=== PATIENT | female | born 1980 | race Caucasian/White ===

== ENCOUNTER 2018-04-20 08:24 | Day surgery (SDC) | payer OTHER ==
[~2018-04-20 08:24] MED LIST: Bupivacaine 0.25% 10 ML SDV ONE; Lactated Ringers 1,000 ML IV SCH; Sodium Chloride 0.9% 10 ML Syringe FLUSH PRN; Sodium Chloride 0.9% 2.5 ML Syringe FLUSH PRN
[2018-04-20] MEDS ORDERED: Propofol 200 MG/20 ML SDV ONE ×3 (09:35→12:05)
[2018-04-20] MEDS ORDERED: Lidocaine 2% 5 ML SDV ONE (09:35)
--- NOTE | 2018-04-20 09:50 | PCM.PREANE ---
Preanesthetic Assessment - Anesthesia/Transfusion/Family Hx Anesthesia History: Prior Anesthesia Without Reaction Family History of Anesthesia Reaction: No Transfusion History: No Prior Transfusion(s) Intubation History: Unknown - Review of Systems General: No Symptoms Pulmonary: No Symptoms Cardiovascular: No Symptoms Gastrointestinal: No Symptoms Neurological: No Symptoms Other: Reports: None - Physical Assessment O2 Sat by Pulse Oximetry: 98 Respiratory Rate: 16 Vital Signs: Last Vital Signs Temp 37.1 C 04/20/18 09:27 Pulse 69 04/20/18 09:27 Resp 16 04/20/18 09:27 BP 108/55 L 04/20/18 09:27 Pulse Ox 98 04/20/18 09:27 Height: 1.68 m Weight: 80.739 kg ASA Class: 2 Mental Status: Alert & Oriented x3 Airway Class: Mallampati = 2 Dentition: Reports: Normal Dentition Thyro-Mental Finger Breadths: 3 Mouth Opening Finger Breadths: 2 ROM/Head Extension: Full Lungs: Clear to Auscultation, Normal Respiratory Effort Cardiovascular: Regular Rate, Regular Rhythm - Lab Values: Laboratory Last Values WBC 5.62 K/uL (4.0-11.0) 04/20/18 08:56 RBC 4.04 M/uL (4.30-5.90) L 04/20/18 08:56 Hgb 13.4 g/dL (12.0-16.0) 04/20/18 08:56 Hct 39.9 % (36.0-46.0) 04/20/18 08:56 MCV 98.8 fL (80.0-98.0) H 04/20/18 08:56 MCH 33.2 pg (27.0-32.0) H 04/20/18 08:56 MCHC 33.6 g/dL (31.0-37.0) 04/20/18 08:56 RDW Std Deviation 49.7 fl (28.0-62.0) 04/20/18 08:56 RDW Coeff of Christina 14 % (11.0-15.0) 04/20/18 08:56 Plt Count 212 K/uL (150-400) 04/20/18 08:56 MPV 9.40 fL (7.40-12.00) 04/20/18 08:56 Nucleated RBC % 0.0 /100WBC 04/20/18 08:56 Nucleated RBCs # 0 K/uL 04/20/18 08:56 Urine HCG, Qual NEGATIVE (NEGATIVE) 04/20/18 08:50 Antibody Screen NEGATIVE 04/20/18 08:56 - Allergies Allergies/Adverse Reactions: Allergies Allergy/AdvReac Type Severity Reaction Status Date / Time No Known Allergies Allergy Verified 04/14/18 16:28 - Blood Blood Available: No - Anesthesia Plan Pre-Op Medication Ordered: None - Acknowledgements Anesthesia Type Planned: General Anesthesia Pt an Appropriate Candidate for the Planned Anesthesia: Yes Alternatives and Risks of Anesthesia Discussed w Pt/Guardian: Yes Pt/Guardian Understands and Agrees with Anesthesia Plan: Yes PreAnesthesia Questionnaire Cardiovascular History: Reports: Arrhythmia Other Cardiovascular History: states has "palpitations" Genitourinary History: Reports: Other (See Below) Other Genitourinary History: has venereal warts 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: Reports: Endometriosis Musculoskeletal History: Reports: Fracture Other Musculoskeletal History: hx of fx toe Neurological History: Reports: Migraines - Past Surgical History Female Surgical History: Reports: Endometrial Ablation, Tubal Ligation, Other (See Below) (hysteroscopy) - SUBSTANCE USE Smoking Status *Q: Current Every Day Smoker (1/2 ppd) Tobacco Use Within Last Twelve Months: Cigarettes Recreational Drug Use History: No - HOME MEDS Home Medications: Home Meds Topiramate 50 mg PO DAILY 04/14/18 [History] - CURRENT (IN HOUSE) MEDS Current Meds: Current Medications Lactated Ringer's (Ringers, Lactated) 1,000 mls @ 125 mls/hr IV ASDIRECTED [facility] Last Admin: 04/20/18 09:00 Dose: 125 mls/hr Sodium Chloride (Saline Flush) 10 ml FLUSH ASDIRECTED PRN PRN Reason: Keep Vein Open Sodium Chloride (Saline Flush) 2.5 ml FLUSH ASDIRECTED PRN PRN Reason: Keep Vein Open Discontinued Medications Bupivacaine HCl (Sensorcaine-Mpf 0.25%) Confirm Administered Dose 10 ml .ROUTE .STK-MED ONE Stop: 04/20/18 07:37 Lidocaine (Xylocaine-Mpf 2%) Confirm Administered Dose 5 ml .ROUTE .STK-MED ONE Stop: 04/20/18 09:36 Propofol (Diprivan 20 Ml) Confirm Administered Dose 200 mg .ROUTE .STK-MED ONE Stop: 04/20/18 09:36
[2018-04-20] MEDS ORDERED: Midazolam 1 MG/ML 2 ML SDV ONE (10:12)
[2018-04-20] MEDS ORDERED: fentaNYL 250 MCG/5 ML SDV ONE (10:12)
[2018-04-20] MEDS ORDERED: fentaNYL 100 MCG/2 ML SDV ONE (10:12)
[2018-04-20] MEDS ORDERED: Sugammadex Sodium 200 MG/2 ML VIAL ONE (10:41)
[2018-04-20] MEDS ORDERED: ePHEDrine 50 MG/ML SDV ONE (11:44)
[2018-04-20] MEDS ORDERED: fentaNYL 100 MCG/2 ML SDV IVPUSH PRN (11:51)
--- NOTE | 2018-04-20 13:07 | PCM.OPNOTE ---
- General Post-Op/Procedure Note Date of Surgery/Procedure: 04/20/18 Operative Procedure(s): Diagnostic laparoscopy. Excision of perineal/genital lesions Findings: Normal uterus, tubes(area of ligation visualized), ovaries Multiple genital/perineal lesions Pre Op Diagnosis: Dyspareunia. Perineal and genital lesions Post-Op Diagnosis: Same Anesthesia Technique: General ET Tube Primary Surgeon: Cassia To Anesthesia Provider: Alexander Betancourt Excellence Leader: Beba Guerrier Pathology: Lesions from the perineal area Fluid Replacement, Intraop: 1,500 EBL in mLs: 5 Complications: None Condition: Good Free Text/Narrative:: Intake & Output 04/19/18 04/20/18 04/20/18 22:59 06:59 14:59 Output Total 50 Balance -50
[2018-04-20] MEDS ORDERED: Acetaminophen/oxyCODONE 325-5 MG Tab PO PRN (13:13)
[2018-04-20] MEDS ORDERED: Lactated Ringers 1,000 ML IV SCH (13:15)
--- NOTE | 2018-04-20 14:14 | PCM.POSTAN ---
POST ANESTHESIA ASSESSMENT - MENTAL STATUS Mental Status: Alert, Oriented - RESPIRATORY Respiratory Status: Respiratory Rate WNL, Airway Patent, O2 Saturation Stable - CARDIOVASCULAR CV Status: Pulse Rate WNL, Blood Pressure Stable - GASTROINTESTINAL GI Status: No Symptoms - POST OP HYDRATION Hydration Status: Adequate & Stable
--- NOTE | 2018-04-20 14:15 | PCM48HPAN ---
Post Anesthesia Note - EVALUATION WITHIN 48HRS OF ANESTHETIC Vital Signs in Normal Range: Yes Patient Participated in Evaluation: Yes Respiratory Function Stable: Yes Airway Patent: Yes Cardiovascular Function Stable: Yes Hydration Status Stable: Yes Pain Control Satisfactory: Yes Nausea and Vomiting Control Satisfactory: Yes Mental Status Recovered: Yes Resp Rate: 15
--- NOTE | 2018-04-21 01:20 | OR ---
SURGEON: Cassia To MD DATE OF PROCEDURE: 04/20/2018 [employer]LE [employer] OPERATOR: Tania Guerrier, MS IV. PREOPERATIVE DIAGNOSES: 1. Dyspareunia. 2. Perineal and genital lesions. POSTOPERATIVE DIAGNOSES: 1. Dyspareunia. 2. Perineal and genital lesions. PROCEDURES PERFORMED: 1. Diagnostic laparoscopy. 2. Excision of perineal lesions. ANESTHESIA: General endotracheal. COMPLICATIONS: None. ESTIMATED BLOOD LOSS: Minimal. FINDINGS: Normal-appearing uterus, tubes with bilateral partial salpingectomy noted,and ovaries. No adhesions or endometriotic deposits visualized. Multiple vulvar lesions and bilateral groin moles. INDICATION: The patient is a 38-year-old lady, who has had long-standing dyspareunia for over 12 years now. She was recently evaluated by another provider, and was told that she most likely has adenomyosis based on ultrasound findings. And It was recommended that she should have a hysterectomy, so she presented to me for a 2nd opinion. We discussed the possible differential diagnosis for dyspareunia. She doesn't want to try hormones but wants a definitive diagnosis, if feasible before she proceeds with hysterectomy if it was indicated. After reviewing her symptoms, I did recommend that we should proceed with a diagnostic laparoscopy to rule out other pelvic pathology including endometriosis but cautioned that adenomyosis is a diagnosis made definitely on pathology and can't be made on laparoscopy. The patient also had multiple vulvar lesions that she wanted to be removed. The lesions all looked benign with bilateral benign- looking moles. The patient accepted to proceed with a diagnostic laparoscopy. The risks, benefits, and alternatives to the surgery was discussed with her in detail, and an appropriate consent was obtained. DESCRIPTION OF PROCEDURE: The patient was taken to the operating room, where induction of general anesthesia was performed without difficulty. After appropriate level of anesthesia, she was placed in dorsal lithotomy position, prepped and draped in a sterile fashion for vaginal and laparoscopic surgery. The bladder was emptied. Examination under anesthesia revealed a bulky retroverted uterus, approximately 8-week size.No adnexal masses were palpable. A bivalve speculum was placed in the patient's vagina, and the anterior lip of the cervix was grasped with a single-tooth tenaculum. The uterus was sounded to 7 cm, and a Zumi uterine manipulator was placed into the uterine cavity. The speculum and instruments were removed from the patient's vagina, and vacuum filter operator's gloves were changed. Attention was then turned to the patient's abdomen, the umbilical fold was infiltrated with 0.5% Marcaine, and a 5 mm skin incision was made within the fold. Successful entry into the abdominal cavity was achieved with direct optic entrance using a 5 mm trocar and scope. Pneumoperitoneum was established using CO2 gas up to a pressure of 15 mmHg. Abdominal and pelvic survey of the abdomen was performed. A 2nd port was then placed using a 5 mm trocar in the left lower quadrant under direct visualization, 8 cm from the midline after the area had been infiltrated with 0.25 Marcaine. A systemic evaluation of the pelvis was then performed from the right side to the left side, looking for any abnormalities including possible endometriotic deposits. With no pathology visualized, the laparoscopy was completed. The gas was stopped and released, and the left port was removed under direct visualization. The umbilical port was removed with the laparoscope. The skin incisions were closed with 4-0 Monocryl using subcuticular stitches. Attention was turned to the patient's perineal area, where the Zumi manipulator was removed and the area at which the single-tooth tenaculum was applied was noted to be hemostatic. I then proceeded to perform excision of multiple vulvar lesions using #11 blade and cauterizing the base with electrocautery. Hemostasis was achieved. There were 2 lesions that were removed sequentially on the patient's left labia majora. This area was reapproximated with 2 interrupted stitches of 4-0 Vicryl. All the lesions that were excised including the ones in the groins were all sent off to pathology for analysis. The patient tolerated the procedure well. Sponge, lap, needle, and instrument counts were correct at the end of the procedure. She was taken to the recovery room in a stable condition. ADUMVIV / MODL /[id number] MORELIA
== END 2018-04-20 14:30 | disposition home or self-care (01) ==
LOC: MW.SDS 08:24
PROVIDERS: ATTEND Obstetrics & Gynecology
DX: N94.12 Deep dyspareunia (principal); A63.0 Anogenital (venereal) warts; F17.210 Nicotine dependence, cigarettes, uncomplicated; F41.9 Anxiety disorder, unspecified
CPT/HCPCS: 11420; 36415; 49320; 81025; 85027; 86850; 86900; 86901; 88305; J2250; J2704; J3010; J3490; J7120; 00840

== ENCOUNTER 2019-11-03 16:25 | Emergency (ER) | payer OTHER | END 2019-11-03 18:04 | disposition left against medical advice (07) | LOC: MW.ED 16:25 | DX: Z53.21 Procedure and treatment not carried out due to patient leaving prior to being seen by health care provider (principal) ==

== ENCOUNTER 2020-06-24 21:53 | Emergency (ER) | payer OTHER ==
[2020-06-24] MEDS ORDERED: Lidocaine 5% 700 MG Patch TOP ONE (22:13)
[2020-06-24] MEDS ORDERED: traMADol 50 MG Tab PO ONE (22:13)
[2020-06-24] MEDS ORDERED: predniSONE 20 MG Tab PO ONE (22:13)
--- NOTE | 2020-06-24 22:22 | EDM.PDOC ---
ED HPI GENERAL MEDICAL PROBLEM - General Chief Complaint: Back Pain or Injury Stated Complaint: back injury Time Seen by Provider: 06/24/20 22:07 - History of Present Illness INITIAL COMMENTS - FREE TEXT/NARRATIVE: HISTORY AND PHYSICAL: History of present illness: This is a 40-year-old female who presents the ER today secondary to severe right-sided low back pain that occurred a couple days ago while lifting a pallet off the ground she felt a ripping sensation to her lower back. Patient reports no loss of bowel or bladder function, no perineal paresthesias, no weakness to her upper or lower extremities, no recent fevers, shakes, chills, nausea, vomiting, diarrhea, dysuria, frequency, urgency, hematuria. Patient reports no recent weight loss. Patient is tolerating p.o. solids and liquids well. Patient reports that she has been taking Naprosyn and Flexeril from a prior prescription without any relief in pain. Patient reports that she had a similar episode like this approximately 15 years ago and only thing that benefited her was a course of steroids. Review of systems: As per history of present illness and below otherwise all systems reviewed and negative. Past medical history: As per history of present illness and as reviewed below otherwise noncontributory. Surgical history: As per history of present illness and as reviewed below otherwise noncontributory. Social history: No reported history of drug or alcohol abuse. Family history: As per history of present illness and as reviewed below otherwise noncontributory. Physical exam: Constitutional: Patient is oriented to person, place, and time. Appears well- developed and well-nourished. No distress. HEENT: Moist mucous membranes Head: Normocephalic and atraumatic Eyes: Right eye exhibits no discharge. Left eye exhibits no discharge. No scleral icterus Neck: Normal range of motion. No tracheal deviation present. Cardiovascular: Normal rate and regular rhythm. Pulmonary: Effort normal, no respiratory distress. Abdominal: No distention Musculoskeletal: Normal range of motion Neurologic: Alert and oriented to person, place and time. Skin: [place], warm and dry. Psychiatric: Normal mood and affect. Behavior is normal. Judgment and thought content normal. Nursing note and vital signs have been reviewed Patient has reproducible tenderness to palpation to her right lower back. Patient has no evidence of retro-peritonitis. Patient has a normal neurological exam. Therapeutics: Medrol Dosepak Lidoderm patch Ultram 50 mg p.o. x1 dose in ED Assessment and plan: This is a 40-year-old female who presents ER today with likely mechanical lower back pain secondary to lifting a pallet. Patient be treated with a Medrol dose pack per her request as well as a Lidoderm patch and Ultram 50 mg p.o. x1 in ED. Patient has been also given instructions to rest, apply heat and no heavy lifting. Patient has no evidence of cord injury or other spinal cord pathology given her current symptoms and presentation. Reassessment at the time of disposition demonstrates that the patient is in no acute distress. The patient has remained stable throughout the entire ED visit and is without objective evidence for acute process requiring urgent intervention or hospitalization. The patient is stable for discharge, counseling is provided as documented above, discussed symptomatic treatment and specific conditions for return. I have spoken with the patient/caregiver and discussed todays findings, in addition to providing specific details for the plan of care. Questions are answered and there is agreement with the plan. Definitive disposition and diagnosis as appropriate pending reevaluation and review of above. Right Lower Back Pain Score (Numeric/FACES): 7 - Related Data Allergies Allergy/AdvReac Type Severity Reaction Status Date / Time No Known Allergies Allergy Verified 06/24/20 22:06 Home Meds: Home Meds Topiramate 50 mg PO BID 04/14/18 [History] Ibuprofen 800 mg PO Q8H PRN 7 Days #21 tablet 08/24/18 [Rx] Cholecalciferol (Vitamin D3) [Vitamin D3] 2 tab PO DAILY 11/03/19 [History] Multivitamin [Multivitamins] 1 tab PO DAILY 11/03/19 [History] Lidocaine 5% [Lidoderm 5%] 1 patch TOP DAILY PRN #7 patch 06/24/20 [Rx] methylPREDNISolone [Medrol Dose Pack] 84 mg PO DAILY #1 dospk 06/24/20 [Rx] Past Medical History Cardiovascular History: Reports: Arrhythmia Other Cardiovascular History: states has "palpitations" Respiratory History: Reports: Other (See Below) Other Respiratory History: smokes 1 PPD for 22 years Genitourinary History: Reports: Other (See Below) Other Genitourinary History: has venereal warts 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 Musculoskeletal History: Reports: Back Pain, Chronic, Fracture Other Musculoskeletal History: hx of fx toe Neurological History: Reports: Migraines Other Neuro History: takes Topamax daily for migraines - Infectious Disease History Infectious Disease History: Reports: Chicken Pox - Past Surgical History Female Surgical History: Reports: Endometrial Ablation, Hysterectomy, Tubal Ligation, Other (See Below) Other Female Surgeries/Procedures: Laparoscopy 05/01, Hysteroscopy, Excision of genital lesions Social & Family History - Family History Family Medical History: Noncontributory - Recreational Drug Use Recreational Drug Use: No ED ROS GENERAL - Review of Systems Review Of Systems: See Below ED EXAM, GENERAL - Physical Exam Exam: See Below Course - Vital Signs Last Recorded V/S: Last Vital Signs Temp 98.5 F 06/24/20 21:58 Pulse 101 H 06/24/20 21:58 Resp 18 06/24/20 21:58 BP 110/63 06/24/20 21:58 Pulse Ox 97 06/24/20 21:58 - Orders/Labs/Meds Meds: Medications Discontinued Medications Generic Name Dose Route Start Last Admin Trade Name Freq PRN Reason Stop Dose Admin Lidocaine 700 mg 06/24/20 22:13 Lidoderm 5% TOP 06/24/20 22:14 ONETIME ONE Prednisone 40 mg 06/24/20 22:13 Prednisone PO 06/24/20 22:14 ONETIME ONE Tramadol HCl 50 mg 06/24/20 22:13 Ultram PO 06/24/20 22:14 ONETIME ONE Departure - Departure Time of Disposition: 22:21 Disposition: Home, Self-Care 01 Clinical Impression: Acute low back pain - Discharge Information Prescriptions: Lidocaine 5% [Lidoderm 5%] 1 patch TOP DAILY PRN #7 patch PRN Reason: Pain methylPREDNISolone [Medrol Dose Pack] 84 mg PO DAILY #1 dospk Instructions: Acute Back Pain, Adult Referrals: Demarco Henry MD [Primary Care Provider] - Additional Instructions: You have been given prescription for Lidoderm patches as well as a Medrol Dosepak. Please take the Medrol Dosepak as directed. The following information is given to patients seen in the emergency department who are being discharged to home. This information is to outline your options for follow-up care. We provide all patients seen in our emergency department with a follow-up referral. The need for follow-up, as well as the timing and circumstances, are variable depending upon the specifics of your emergency department visit. If you don't have a primary care physician on staff, we will provide you with a referral. We always advise you to contact your personal physician following an emergency department visit to inform them of the circumstance of the visit and for follow-up with them and/or the need for any referrals to a consulting specialist. The emergency department will also refer you to a specialist when appropriate. This referral assures that you have the opportunity for follow-up care with a specialist. All of these measure are taken in an effort to provide you with optimal care, which includes your follow-up. Under all circumstances we always encourage you to contact your private physician who remains a resource for coordinating your care. When calling for follow-up care, please make the office aware that this follow-up is from your recent emergency room visit. If for any reason you are refused follow-up, please contact the [facility] Emergency Department at and asked to speak to the emergency department charge nurse. Sepsis Event Note (ED) - Evaluation Sepsis Screening Result: No Definite Risk - Focused Exam Vital Signs: Vital Signs Temp Pulse Resp BP Pulse Ox 06/24/20 21:58 98.5 F 101 H 18 110/63 97
== END 2020-06-24 22:30 | disposition home or self-care (01) ==
LOC: MW.ED 21:53
DX: M54.5 Low back pain (principal); F17.210 Nicotine dependence, cigarettes, uncomplicated; Z79.899 Other long term (current) drug therapy
CPT/HCPCS: 99283; A9270

== ENCOUNTER 2021-07-16 07:56 | Day surgery (SDC) | payer BC ==
[~2021-07-16 07:56] MED LIST changes: -Bupivacaine 0.25% 10 ML SDV ONE; +Sodium Chloride 0.9% 10 ML SDV IV PRN
--- NOTE | 2021-07-16 08:56 | PCM.PREANE ---
Preanesthetic Assessment - Procedure Proposed Procedure: EGD - Anesthesia/Transfusion/Family Hx Anesthesia History: Prior Anesthesia Without Reaction Family History of Anesthesia Reaction: No Transfusion History: No Prior Transfusion(s) Intubation History: Unknown - Review of Systems General: No Symptoms Pulmonary: No Symptoms (Smokes <1PPD) Cardiovascular: No Symptoms ("Palpitations") Gastrointestinal: No Symptoms Neurological: No Symptoms Other: Reports: None - Physical Assessment NPO Status Date: 07/15/21 NPO Status Time: 20:00 Vital Signs: Last Vital Signs Temp 97.3 F 07/16/21 08:11 Pulse 68 07/16/21 08:11 Resp 14 07/16/21 08:11 BP 105/65 07/16/21 08:11 Pulse Ox 98 07/16/21 08:11 Height: 5 ft 8 in Weight: 87.09 kg ASA Class: 2 Mental Status: Alert & Oriented x3 Airway Class: Mallampati = 3 Dentition: Reports: Normal Dentition Thyro-Mental Finger Breadths: 3 Mouth Opening Finger Breadths: 3 ROM/Head Extension: Full Lungs: Clear to Auscultation, Normal Respiratory Effort Cardiovascular: Regular Rate, Regular Rhythm - Allergies Allergies/Adverse Reactions: Allergies Allergy/AdvReac Type Severity Reaction Status Date / Time No Known Allergies Allergy Verified 07/10/21 10:09 - Acknowledgements Anesthesia Type Planned: General Anesthesia Pt an Appropriate Candidate for the Planned Anesthesia: Yes Alternatives and Risks of Anesthesia Discussed w Pt/Guardian: Yes Pt/Guardian Understands and Agrees with Anesthesia Plan: Yes PreAnesthesia Questionnaire HEENT History: Reports: None Cardiovascular History: Reports: Arrhythmia Other Cardiovascular History: states has "palpitations" Respiratory History: Reports: Other (See Below) Other Respiratory History: smokes 1 PPD for 22 years Gastrointestinal History: Reports: Chronic Constipation, Other (See Below) Other Gastrointestinal History: abdominal pain Genitourinary History: Reports: Other (See Below) Other Genitourinary History: has venereal warts 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 Musculoskeletal History: Reports: Back Pain, Chronic, Fracture Other Musculoskeletal History: hx of fx toe Neurological History: Reports: Migraines Other Neuro History: takes Topamax daily for migraines Psychiatric History: Reports: None Endocrine/Metabolic History: Reports: None Hematologic History: Reports: None Immunologic History: Reports: None Oncologic (Cancer) History: Reports: None Dermatologic History: Reports: None - Infectious Disease History Infectious Disease History: Reports: Chicken Pox - Past Surgical History Head Surgeries/Procedures: Reports: None HEENT Surgical History: Reports: None Cardiovascular Surgical History: Reports: None Respiratory Surgical History: Reports: None GI Surgical History: Reports: Colonoscopy Female Surgical History: Reports: Endometrial Ablation, Hysterectomy, Tubal Ligation, Other (See Below) Other Female Surgeries/Procedures: Laparoscopy 05/01, Hysteroscopy, Excision of genital lesions Endocrine Surgical History: Reports: None Neurological Surgical History: Reports: None Musculoskeletal Surgical History: Reports: None Oncologic Surgical History: Reports: None - SUBSTANCE USE Tobacco Use Status *Q: Current Every Day Tobacco User Tobacco Use Within Last Twelve Months: Cigarettes Recreational Drug Use History: No - HOME MEDS Home Medications: Home Meds Topiramate 50 mg PO BID 04/14/18 [History] Multivitamin [Multivitamins] 1 tab PO DAILY 11/03/19 [History] Dicyclomine [Bentyl] 10 - 20 mg PO Q6H PRN 07/10/21 [History] Gabapentin [Neurontin] 300 mg PO BEDTIME 07/10/21 [History] - CURRENT (IN HOUSE) MEDS Current Meds: Current Medications Lactated Ringer's (Ringers, Lactated) 1,000 mls @ 125 mls/hr IV ASDIRECTED [facility] Last Admin: 07/16/21 08:11 Dose: 125 mls/hr Documented by: Sodium Chloride (Sodium Chloride 0.9% 10 Ml Syringe) 10 ml FLUSH ASDIRECTED PRN PRN Reason: Keep Vein Open Sodium Chloride (Sodium Chloride 0.9% 2.5 Ml Syringe) 2.5 ml FLUSH ASDIRECTED PRN PRN Reason: Keep Vein Open Sodium Chloride (Sodium Chloride 0.9% 10 Ml Sdv) 10 ml IV ASDIRECTED PRN PRN Reason: IV Use
[2021-07-16] MEDS ORDERED: fentaNYL 100 MCG/2 ML SDV ONE (09:10)
[2021-07-16] MEDS ORDERED: Lidocaine 2% 100 MG/5 ML Syringe ONE (09:10)
[2021-07-16] MEDS ORDERED: Propofol 200 MG/20 ML SDV ONE (09:10)
--- NOTE | 2021-07-16 10:12 | PCM.POSTAN ---
POST ANESTHESIA ASSESSMENT - MENTAL STATUS Mental Status: Alert, Oriented - VITAL SIGNS Vital Signs: Last Vital Signs Temp 97.2 F 07/16/21 10:05 Pulse 68 07/16/21 10:10 Resp 13 07/16/21 10:10 BP 100/59 L 07/16/21 10:10 Pulse Ox 97 07/16/21 10:10 - RESPIRATORY Respiratory Status: Respiratory Rate WNL, Airway Patent, O2 Saturation Stable - CARDIOVASCULAR CV Status: Pulse Rate WNL, Blood Pressure Stable - GASTROINTESTINAL GI Status: No Symptoms - PAIN Pain Score: 0 - POST OP HYDRATION Hydration Status: Adequate & Stable
--- NOTE | 2021-07-16 10:18 | PCM48HPAN ---
Post Anesthesia Note - EVALUATION WITHIN 48HRS OF ANESTHETIC Vital Signs in Normal Range: Yes Patient Participated in Evaluation: Yes Respiratory Function Stable: Yes Airway Patent: Yes Cardiovascular Function Stable: Yes Hydration Status Stable: Yes Pain Control Satisfactory: Yes Nausea and Vomiting Control Satisfactory: Yes Mental Status Recovered: Yes Vital Signs: Last Vital Signs Temp 97.2 F 07/16/21 10:05 Pulse 68 07/16/21 10:10 Resp 13 07/16/21 10:10 BP 100/59 L 07/16/21 10:10 Pulse Ox 97 07/16/21 10:10 - COMMENTS/OBSERVATIONS Free Text/Narrative:: Pt doing well post-op. VSS. No apparent anesthetic complications. Dr. Homer Betancourt
--- NOTE | 2021-07-16 14:35 | PCM.OPNOTE ---
- General Post-Op/Procedure Note Date of Surgery/Procedure: 07/16/21 Operative Procedure(s): EGD with biopsy Findings: Normal appearing EGD Pre Op Diagnosis: Postprandial abdominal pain Post-Op Diagnosis: same Anesthesia Technique: DORIS Primary Surgeon: Cheri Cordero Condition: Good Free Text/Narrative:: Intake & Output 07/15/21 07/16/21 07/16/21 22:59 06:59 14:59 Intake Total 600 Balance 600
--- NOTE | 2021-07-17 17:50 | OR ---
SURGEON: CHERI CORDERO MD DATE OF PROCEDURE: 07/16/2021 PREOPERATIVE DIAGNOSIS: Postprandial abdominal pain. POSTOPERATIVE DIAGNOSIS: Postprandial abdominal pain. PROCEDURE PERFORMED: Diagnostic esophagogastroduodenoscopy. PRIMARY SURGEON: Cheri Cordero MD ANESTHESIA: MAC. INSTRUMENT USED: Olympus endoscope. EXTENT OF EXAM: To the second portion of duodenum. PREPARATION: Good. LIMITATIONS: None. INDICATIONS FOR EXAMINATION: Patient is a 41-year-old female who presented to my clinic with postprandial abdominal pain. A right upper quadrant ultrasound was normal. The decision was made to proceed to the operating room to perform a diagnostic EGD. I explained the procedure, expected perioperative course, and the risks. She verbalized understanding and wishes to proceed. PROCEDURE IN DETAIL: The patient was brought in to the endoscopy suite and placed in a left lateral decubitus position. A time-out was completed verifying the patient's name, age, date of , allergies, and procedure to be performed. A bite block was placed in the patient's mouth. Monitored anesthesia care was induced and continuous oxygen was provided via face mask throughout the procedure. After adequate sedation was achieved, a well-lubricated endoscope was placed in the patient's mouth and advanced under direct visualization to the second portion of duodenum. This appeared normal and a photograph was taken. The scope was then fully withdrawn while examining the color, texture, anatomy, and integrity of the mucosa of the upper GI tract. The duodenum appeared normal. A biopsy was taken within the duodenal bulb using a cold biopsy forceps. The scope was then brought into the stomach and a photograph was taken of the GE junction with the scope retroflexed as well as the pylorus. Both appeared anatomically normal. Biopsies were taken of the gastric antrum, body, and fundus and sent to Pathology for histologic review and H pylori testing. The scope was brought into the distal esophagus. The Z-line appeared normal. A biopsy was taken 1 cm above the Z-line and sent to Pathology for histologic review. The remainder of the esophagus was free of pathology. The patient tolerated the procedure well and was transferred to the PACU in stable condition. ENDOSCOPIC DIAGNOSIS: Postprandial abdominal pain. RECOMMENDATIONS: We will see what the biopsy results show and visit with the patient in clinic regarding the next steps in diagnosis and treatment. AMBROSIO / LIANE /[id number]
== END 2021-07-16 10:36 | disposition home or self-care (01) ==
LOC: MW.SDS 07:56
PROVIDERS: ATTEND Surgery
DX: K29.50 Unspecified chronic gastritis without bleeding (principal); I78.1 Nevus, non-neoplastic; G47.00 Insomnia, unspecified; G43.909 Migraine, unspecified, not intractable, without status migrainosus; K59.09 Other constipation; F17.200 Nicotine dependence, unspecified, uncomplicated; E53.8 Deficiency of other specified B group vitamins; Z79.899 Other long term (current) drug therapy; Z98.890 Other specified postprocedural states
CPT/HCPCS: 43239; J2704; J3010; J7120; 00731

== ENCOUNTER 2021-08-20 08:41 | Day surgery (SDC) | payer BC ==
[~2021-08-20 08:41] MED LIST changes: +Glycopyrrolate 0.2 MG/ML SDV ONE; +Ketorolac 30 MG/ML SDV ONE; +Lidocaine 2% 5 ML SDV ONE; +Midazolam 1 MG/ML 2 ML SDV ONE; +Ondansetron 4 MG/2 ML SDV ONE; +Rocuronium Bromide 50 MG/5 ML Syringe ONE; +Scopolamine 1.5 MG Transdermal Patch ONE; -Sodium Chloride 0.9% 10 ML SDV IV PRN; +Sodium Chloride 0.9% 20 ML SDV IV PRN; +Sugammadex Sodium 200 MG/2 ML VIAL ONE; +Water For Injection, Sterile 20 ML ONE; +ceFAZolin 1 GM Vial ONE; +ceFAZolin 2 GM in Premix Bag 1 BAG IV ONE; +fentaNYL 250 MCG/5 ML SDV ONE
[2021-08-20] MEDS ORDERED: Bupivacaine 0.5% 30 ML SDV ONE ×2 (09:31→12:24)
[2021-08-20] MEDS ORDERED: Albuterol 0.083% 2.5 MG/3 ML Neb Soln NEB PRN (09:34)
[2021-08-20] MEDS ORDERED: fentaNYL 100 MCG/2 ML SDV IVPUSH PRN (09:34)
[2021-08-20] MEDS ORDERED: Ondansetron 4 MG/2 ML SDV IVPUSH PRN (09:34)
[2021-08-20] MEDS ORDERED: HYDROmorphone 1 MG/ML Syringe IVPUSH PRN (09:34)
[2021-08-20] MEDS ORDERED: Naloxone 0.4 MG/ML SDV IVPUSH PRN (09:34)
[2021-08-20] MEDS ORDERED: Metoclopramide 10 MG/2 ML SDV IVPUSH PRN (09:34)
[2021-08-20] MEDS ORDERED: Dexmedetomidine 200 MCG/2 ML SDV ONE (09:44)
[2021-08-20] MEDS ORDERED: Propofol 200 MG/20 ML SDV ONE (09:44)
[2021-08-20] MEDS ORDERED: Rocuronium Bromide 50 MG/5 ML Syringe ONE (09:44)
[2021-08-20] MEDS ORDERED: Lidocaine 2% 100 MG/5 ML Syringe ONE (09:44)
[2021-08-20] MEDS ORDERED: Midazolam 1 MG/ML 2 ML SDV ONE (09:44)
[2021-08-20] MEDS ORDERED: Dexamethasone 4 MG/ML 5 ML MDV ONE (09:44)
[2021-08-20] MEDS ORDERED: fentaNYL 100 MCG/2 ML SDV ONE (09:44)
[2021-08-20] MEDS ORDERED: Water For Injection, Sterile 20 ML ONE (09:45)
--- NOTE | 2021-08-20 09:45 | PCM.PREANE ---
Preanesthetic Assessment - Procedure Proposed Procedure: Lap Stacie - Anesthesia/Transfusion/Family Hx Anesthesia History: Prior Anesthesia Without Reaction Family History of Anesthesia Reaction: No Transfusion History: No Prior Transfusion(s) Intubation History: Unknown - Review of Systems Pulmonary: No Symptoms (smokes 1/2 PPD) Cardiovascular: No Symptoms (h/o palpitations) Gastrointestinal: No Symptoms Neurological: No Symptoms Other: Reports: None - Physical Assessment NPO Status Date: 08/20/21 NPO Status Time: 23:45 Vital Signs: Last Vital Signs Temp 97.9 F 08/20/21 09:13 Pulse 88 08/20/21 09:13 Resp 16 08/20/21 09:13 BP 117/80 08/20/21 09:13 Pulse Ox 97 08/20/21 09:13 Height: 5 ft 8 in Weight: 88.904 kg ASA Class: 2 Mental Status: Alert & Oriented x3 Airway Class: Mallampati = 3 Dentition: Reports: Normal Dentition Thyro-Mental Finger Breadths: 3 Mouth Opening Finger Breadths: 3 ROM/Head Extension: Full Lungs: Clear to Auscultation, Normal Respiratory Effort Cardiovascular: Regular Rate, Regular Rhythm - Allergies Allergies/Adverse Reactions: Allergies Allergy/AdvReac Type Severity Reaction Status Date / Time No Known Allergies Allergy Verified 07/10/21 10:09 - Acknowledgements Anesthesia Type Planned: General Anesthesia Pt an Appropriate Candidate for the Planned Anesthesia: Yes Alternatives and Risks of Anesthesia Discussed w Pt/Guardian: Yes Pt/Guardian Understands and Agrees with Anesthesia Plan: Yes PreAnesthesia Questionnaire HEENT History: Reports: None Cardiovascular History: Reports: Arrhythmia Other Cardiovascular History: states has "palpitations" Respiratory History: Reports: Other (See Below) Other Respiratory History: smokes 1/2 PPD for 22 years Gastrointestinal History: Reports: Chronic Constipation, Other (See Below) Other Gastrointestinal History: epigastric pain Genitourinary History: Reports: Other (See Below) Other Genitourinary History: has venereal warts 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 CHEMIST History: Reports: Endometriosis, Musculoskeletal History: Reports: Back Pain, Chronic, Fracture Other Musculoskeletal History: hx of fx toe Neurological History: Reports: Migraines Other Neuro History: takes Topirmax daily for migraines Psychiatric History: Reports: None Endocrine/Metabolic History: Reports: None Hematologic History: Reports: None Immunologic History: Reports: None Oncologic (Cancer) History: Reports: None Dermatologic History: Reports: None - Infectious Disease History Infectious Disease History: Reports: Chicken Pox - Past Surgical History Head Surgeries/Procedures: Reports: None HEENT Surgical History: Reports: None Cardiovascular Surgical History: Reports: None Respiratory Surgical History: Reports: None GI Surgical History: Reports: Colonoscopy Other GI Surgeries/Procedures: EGD 07/16/21 Female Surgical History: Reports: Endometrial Ablation, Hysterectomy, Tubal Ligation, Other (See Below) Other Female Surgeries/Procedures: Laparoscopy 05/01, Hysteroscopy, Excision of genital lesions Endocrine Surgical History: Reports: None Neurological Surgical History: Reports: None Musculoskeletal Surgical History: Reports: None Oncologic Surgical History: Reports: None - SUBSTANCE USE Tobacco Use Status *Q: Current Every Day Tobacco User Tobacco Use Within Last Twelve Months: Cigarettes - HOME MEDS Home Medications: Home Meds Topiramate 50 mg PO BID 04/14/18 [History] Aspirin [Adult Aspirin Regimen] 81 mg PO DAILY 08/14/21 [History] - CURRENT (IN HOUSE) MEDS Current Meds: Current Medications Lactated Ringer's (Ringers, Lactated) 1,000 mls @ 125 mls/hr IV ASDIRECTED RACHAEL Last Admin: 08/20/21 09:16 Dose: 125 mls/hr Documented by: Sodium Chloride (Sodium Chloride 0.9% 2.5 Ml Syringe) 2.5 ml FLUSH ASDIRECTED PRN PRN Reason: Keep Vein Open Sodium Chloride (Sodium Chloride 0.9% 20 Ml Sdv) 10 ml IV ASDIRECTED PRN PRN Reason: IV Use Sodium Chloride (Sodium Chloride 0.9% 10 Ml Syringe) 10 ml FLUSH ASDIRECTED PRN PRN Reason: Keep Vein Open Discontinued Medications Cefazolin Sodium (Cefazolin 1 Gm Vial) Confirm Administered Dose 1 gm .ROUTE .STK-MED ONE Stop: 08/20/21 07:44 Fentanyl (Fentanyl 250 Mcg/5 Ml Sdv) Confirm Administered Dose 250 mcg .ROUTE .STK-MED ONE Stop: 08/20/21 07:32 Glycopyrrolate (Glycopyrrolate 0.2 Mg/Ml Sdv) Confirm Administered Dose 0.2 mg .ROUTE .STK-MED ONE Stop: 08/20/21 07:32 Cefazolin Sodium/Dextrose 2 gm (/ Premix) 50 mls @ 100 mls/hr IV ONETIME ONE Stop: 08/19/21 14:20 Sterile Water (Sterile Water For Injection) Confirm Administered Dose 20 mls @ as directed .ROUTE .[facility]-MED ONE Stop: 08/20/21 07:44 Ketorolac Tromethamine (Ketorolac 30 Mg/Ml Sdv) Confirm Administered Dose 30 mg .ROUTE .STK-MED ONE Stop: 08/20/21 07:32 Lidocaine (Lidocaine 2% 5 Ml Sdv) Confirm Administered Dose 5 ml .ROUTE .STK-MED ONE Stop: 08/20/21 07:32 Midazolam HCl (Midazolam 1 Mg/Ml 2 Ml Sdv) Confirm Administered Dose 2 mg .ROUTE .ST-MED ONE Stop: 08/20/21 07:32 Miscellaneous Medication (Phenylephrine Hcl In 0.9% Nacl 1 Mg/10 Ml Syringe) Confirm Administered Dose 1 mg .ROUTE .STK-MED ONE Stop: 08/20/21 08:03 Ondansetron HCl (Ondansetron 4 Mg/2 Ml Sdv) Confirm Administered Dose 4 mg .ROUTE .ST-MED ONE Stop: 08/20/21 07:32 Rocuronium [place] (Rocuronium [place] 50 Mg/5 Ml Syringe) Confirm Administered Dose 50 mg .ROUTE .STK-MED ONE Stop: 08/20/21 07:32 Scopolamine (Scopolamine 1.5 Mg Transdermal Patch) Confirm Administered Dose 1.5 mg .ROUTE .ST-MED ONE Stop: 08/20/21 07:57 Sugammadex Sodium (Sugammadex Sodium 200 Mg/2 Ml Vial) Confirm Administered Dose 200 mg .ROUTE .ST-MED ONE Stop: 08/20/21 07:32
[2021-08-20] MEDS ORDERED: Esmolol 100 MG/10 ML SDV ONE (09:55)
[2021-08-20] MEDS ORDERED: Octyl 2-Cyanoacrylate 1 Tube ONE (09:56)
[2021-08-20] MEDS ORDERED: Ondansetron 4 MG/2 ML SDV ONE (11:22)
[2021-08-20] MEDS ORDERED: Ketorolac 30 MG/ML SDV ONE (11:22)
[2021-08-20] MEDS ORDERED: Sugammadex Sodium 200 MG/2 ML VIAL ONE (11:22)
--- NOTE | 2021-08-20 12:09 | PCM.OPNOTE ---
- General Post-Op/Procedure Note Date of Surgery/Procedure: 08/20/21 Operative Procedure(s): Laparoscopic cholecystectomy Findings: Normal appearing gallbladder Pre Op Diagnosis: Biliary dyskinesia Post-Op Diagnosis: same Anesthesia Technique: General ET Tube Primary Surgeon: Cheri Cordero Fluid Replacement, Intraop: 1,000 Output, Urine Amount: 75 EBL in mLs: 5 Condition: Good
--- NOTE | 2021-08-20 12:10 | PCM.POSTAN ---
POST ANESTHESIA ASSESSMENT - MENTAL STATUS Mental Status: Somnolent - VITAL SIGNS Vital Signs: Last Vital Signs Temp 97.5 F 08/20/21 11:58 Pulse 60 08/20/21 12:04 Resp 15 08/20/21 12:04 BP 82/40 L 08/20/21 12:04 Pulse Ox 98 08/20/21 12:04 - RESPIRATORY Respiratory Status: Respiratory Rate WNL, Airway Patent, O2 Saturation Stable - CARDIOVASCULAR CV Status: Pulse Rate WNL, Blood Pressure Stable - GASTROINTESTINAL GI Status: No Symptoms - PAIN Free Text/Narrative:: Resting comfortably - POST OP HYDRATION Hydration Status: Adequate & Stable
--- NOTE | 2021-08-20 12:17 | PCM48HPAN ---
Post Anesthesia Note - EVALUATION WITHIN 48HRS OF ANESTHETIC Vital Signs in Normal Range: Yes Patient Participated in Evaluation: Yes Respiratory Function Stable: Yes Airway Patent: Yes Cardiovascular Function Stable: Yes Hydration Status Stable: Yes Pain Control Satisfactory: Yes Nausea and Vomiting Control Satisfactory: Yes Mental Status Recovered: Yes Vital Signs: Last Vital Signs Temp 97.5 F 08/20/21 11:58 Pulse 52 L 08/20/21 12:14 Resp 14 08/20/21 12:14 BP 80/43 L 08/20/21 12:14 Pulse Ox 95 08/20/21 12:14 - COMMENTS/OBSERVATIONS Free Text/Narrative:: Pt doing well post-op. VSS. No apparent anesthetic complications. Dr. Homer Betancourt
--- NOTE | 2021-08-20 19:18 | OR ---
SURGEON: CHERI LEMUS MD DATE OF PROCEDURE: 08/20/2021 PREOPERATIVE DIAGNOSIS: Biliary dyskinesia. POSTOPERATIVE DIAGNOSIS: Biliary dyskinesia. PROCEDURE PERFORMED: Laparoscopic cholecystectomy. PRIMARY SURGEON: Cheri Lemus MD ANESTHESIA: General endotracheal anesthesia. FLUIDS: 1000 mL crystalloid. ESTIMATED BLOOD LOSS: 5 mL.. URINE OUTPUT: 75 mL. FINDINGS: Normal-appearing gallbladder. COMPLICATIONS: None. INDICATIONS: The patient is a 41-year-old female with postprandial abdominal pain. A recent HIDA scan showed an ejection fraction of 12% consistent with biliary dyskinesia. I explained the need for a laparoscopic, possible open cholecystectomy. I explained the procedure, expected perioperative course, and the risks. The patient verbalized understanding and wishes to proceed. PROCEDURE IN DETAIL: The patient brought in to the OR and placed on the OR table in supine position. A time-out was completed verifying the patient's name, age, date of , allergies, and procedure to be performed. General endotracheal anesthesia was induced. The left arm was tucked at the patient's side and a Ochoa catheter placed. The abdomen was prepped and draped in usual standard fashion. I anesthetized the infraumbilical fold with 0.5% Marcaine plain. An 11-blade was used to make an incision along the infraumbilical fold along a previous scar line. Cautery was used to dissect through the subcutaneous fat and scar tissue. I bluntly dissected down to the fascia. The fascia was elevated with Kochers and incised sharply with curved Mattson scissors. I then grasped the peritoneum and incised this sharply as well. Entry into the abdomen was palpated digitally. A 12 mm Nat trocar was inserted into the abdomen and it was insufflated. I inserted a 5 mm 5 mm 30-degree scope into the abdomen. I inspected the area underneath my initial trocar placement. No damage to surrounding structures was noted. The patient was placed in reverse Trendelenburg position and airplaned slightly to the left. 5 mm trocars were placed in the following locations under direct visualization; one in the epigastric area, one in the right flank, and one 2 fingerbreadths below the right subcostal margin in the midclavicular line. The dome of the gallbladder was grasped and elevated. I inspected my infundibulum. All of the attachments and fat around the cystic duct and artery were cleared away using hook cautery and blunt dissection. I then cleared away one-third of the cystic plate. Once my critical view was achieved, a photograph was taken. I doubly clipped and ligated my cystic duct and artery. The remainder of the attachments of the gallbladder to the cystic plate were taken down using hook cautery. The gallbladder was then placed in an EndoCatch bag and secured outside of the 12 mm port site. I inspected my operative field. It was hemostatic with no evidence of bile leakage. The 5 mm trocars were removed under direct visualization and the abdomen allowed to desufflate. The 12 mm Nat trocar and EndoCatch bag containing the gallbladder were removed through the infraumbilical port site. I closed the fascia at the infraumbilical port site with interrupted 0 Vicryl sutures. The subcutaneous fat layer was closed with interrupted 3-0 Vicryl sutures. The skin was closed with a running 4-0 Monocryl stitch. My 5 mm trocar sites were closed with interrupted 4-0 Monocryl sutures. All counts were complete and correct at the end of the case. Dermabond and sterile dressings were applied. The patient was extubated and taken to PACU in stable condition. AMBROSIO ROB /[id number]
== END 2021-08-20 14:00 | disposition home or self-care (01) ==
LOC: MW.SDS 08:41
PROVIDERS: ATTEND Surgery
DX: K81.1 Chronic cholecystitis (principal); K82.8 Other specified diseases of gallbladder; F17.210 Nicotine dependence, cigarettes, uncomplicated; G43.909 Migraine, unspecified, not intractable, without status migrainosus; Z98.890 Other specified postprocedural states; Z79.899 Other long term (current) drug therapy; Z79.82 Long term (current) use of aspirin
CPT/HCPCS: 47562; A9270; J0131; J0690; J1100; J1885; J2250; J2370; J2405; J2704; J3010; J3490; J7120; 00790

== ENCOUNTER 2023-11-08 12:14 | Emergency (ER) | payer BC ==
[2023-11-08 13:18] LABS: BASOPHILS ABSOLUTE AUTO 0.03 K/uL (0.00-0.20); BASOPHILS PERCENT AUTO 0.5 % (0.0-1.0); EOSINOPHILS ABSOLUTE AUTO 0.08 K/uL (0.00-0.45); EOSINOPHILS PERCENT AUTO 1.3 % (0.0-6.0); HEMOGLOBIN 13.7 g/dL (12.0-16.0); IMMATURE GRAN ABSOLUTE AUTO 0.02 K/uL (0.00-0.05); IMMATURE GRAN PERCENT AUTO 0.3 % (0.0-0.4); LYMPHOCYTES ABSOLUTE AUTO 2.28 K/uL (1.00-4.80); LYMPHOCYTES PERCENT AUTO 36.6 % (24.0-44.0); MEAN CORPUSCULAR HEMOGLOBIN 33.2 pg (28.0-32.0); MEAN CORPUSCULAR HGB CONC 33.4 g/dL (32.0-36.0); MEAN CORPUSCULAR VOLUME 99.3 fL (83.0-99.0); MEAN PLATELET VOLUME 9.4 fL (9.4-12.3); MONOCYTES ABSOLUTE AUTO 0.48 K/uL (0.00-0.80); MONOCYTES PERCENT AUTO 7.7 % (0.0-8.0); NEUTROPHILS ABSOLUTE AUTO 3.34 K/uL (1.80-7.70); NEUTROPHILS PERCENT AUTO 53.6 % (41.0-71.0); PLATELET COUNT,PLT 232 K/uL (150-400); RED BLOOD CELL COUNT 4.13 M/uL (4.10-5.30); WHITE BLOOD CELL COUNT,WBC 6.23 K/uL (3.9-11.3)
[2023-11-08 13:33] LABS: CARBON DIOXIDE,CO2 25.4 mmol/L (21.0-32.0); EST CRCL DRUG DOSING (CG) 74.24 mL/min; POTASSIUM,K 4.3 mmol/L (3.5-5.1)
[2023-11-08] MEDS: Ampicillin/Sulbactam Na 3 GM in Sodium Chloride 0.9% 100 ML IV STA (13:46)
[2023-11-08] MEDS: Dexamethasone 10 MG/ML SDV PO STA (13:46)
[2023-11-08] MEDS: Sodium Chloride 0.9% 2.5 ML Syringe FLUSH PRN (13:48)
[2023-11-08] MEDS: Sodium Chloride 0.9% 10 ML Syringe FLUSH PRN (13:48)
[2023-11-08] MEDS: Iopamidol 755 Mg/ML 100 ML Bottle IVPUSH STA (19:17)
== END 2023-11-08 15:13 | disposition home or self-care (01) ==
LOC: MW.ED 12:14
DX: H02.402 Unspecified ptosis of left eyelid (principal); K03.81 Cracked tooth; K04.7 Periapical abscess without sinus
CPT/HCPCS: 36415; 70450; 70487; 80048; 85025; 96365; 99284; J0295; J3490; J8540; Q9967; 99283

== ENCOUNTER 2023-11-30 10:01 | Emergency (ER) | payer BC ==
[2023-11-30] MEDS: Sodium Chloride 0.9% 1,000 ML IV ONE (10:39)
[2023-11-30] MEDS: Ketorolac 30 MG/ML SDV IVPUSH ONE (10:40)
[2023-11-30 10:50] LABS: BASOPHILS ABSOLUTE AUTO 0.06 K/uL (0.00-0.20); BASOPHILS PERCENT AUTO 0.6 % (0.0-1.0); EOSINOPHILS ABSOLUTE AUTO 0.06 K/uL (0.00-0.45); EOSINOPHILS PERCENT AUTO 0.6 % (0.0-6.0); HEMATOCRIT 40.7 % (37.0-47.0); HEMOGLOBIN 13.9 g/dL (12.0-16.0); IMMATURE GRAN ABSOLUTE AUTO 0.03 K/uL (0.00-0.05); IMMATURE GRAN PERCENT AUTO 0.3 % (0.0-0.4); LYMPHOCYTES PERCENT AUTO 12.1 % (24.0-44.0); MEAN CORPUSCULAR HEMOGLOBIN 34.2 pg (28.0-32.0); MEAN CORPUSCULAR HGB CONC 34.2 g/dL (32.0-36.0); MEAN PLATELET VOLUME 9.4 fL (9.4-12.3); MONOCYTES ABSOLUTE AUTO 0.55 K/uL (0.00-0.80); MONOCYTES PERCENT AUTO 5.6 % (0.0-8.0); NEUTROPHILS ABSOLUTE AUTO 7.98 K/uL (1.80-7.70); NEUTROPHILS PERCENT AUTO 80.8 % (41.0-71.0); PLATELET COUNT,PLT 243 K/uL (150-400); RED BLOOD CELL COUNT 4.07 M/uL (4.10-5.30); WHITE BLOOD CELL COUNT,WBC 9.88 K/uL (3.9-11.3)
[2023-11-30 11:26] LABS: A/G RATIO 1.1 (0.9-1.6); ALANINE AMINOTRANSFERASE,ALT 20 IU/L (14-63); ALBUMIN 3.9 g/dL (3.4-5.0); ALKALINE PHOSPHATASE 74 U/L (46-116); ASPARTATE AMNIOTRANSFERASE,AST 15 IU/L (15-37); BILIRUBIN TOTAL 0.2 mg/dL (0.2-1.0); BLOOD UREA NITROGEN,BUN 16 mg/dL (7.0-18.0); CALCIUM 9.7 mg/dL (8.5-10.1); CARBON DIOXIDE,CO2 23.1 mmol/L (21.0-32.0); CHLORIDE,CL 108 mmol/L (98-107); CREATININE 1.2 mg/dL (0.6-1.0); EST CRCL DRUG DOSING (CG) 59.72 mL/min; GLUCOSE RANDOM 105 mg/dL (74-106); POTASSIUM,K 4.1 mmol/L (3.5-5.1); PROTEIN TOTAL,TP 7.6 g/dL (6.4-8.2); SODIUM,NA 141 mmol/L (136-145)
[2023-11-30 11:30] LABS: C-REACTIVE PROTEIN < 0.05 mg/dL (<0.3); ESTIMATED GFR 57 mL/min (>60)
[2023-11-30] MEDS: Gadobenate Dimeglumine 529 MG/ML 20 ML SDV IVPUSH STA (11:59)
== END 2023-11-30 13:47 | disposition home or self-care (01) ==
LOC: MW.ED 10:01
DX: G43.909 Migraine, unspecified, not intractable, without status migrainosus (principal); Z90.710 Acquired absence of both cervix and uterus; Z79.899 Other long term (current) drug therapy
CPT/HCPCS: 36415; 70553; 80053; 85025; 85652; 86140; 96361; 96374; 99284; A9577; J1885; J7030

== ENCOUNTER 2024-12-02 20:46 | Emergency (ER) | payer BC ==
[2024-12-02] MEDS ORDERED: Sodium Chloride 0.9% 10 ML Syringe FLUSH PRN (22:09)
[2024-12-02] MEDS ORDERED: Sodium Chloride 0.9% 2.5 ML Syringe FLUSH PRN (22:09)
[2024-12-02] MEDS ORDERED: Sodium Chloride 0.9% 20 ML SDV IV PRN (22:09)
[2024-12-02] MEDS: Fluorescein 1 MG Ophth Strip EYEBOTH ONE (22:28)
[2024-12-02 22:33] LABS: BASOPHILS ABSOLUTE AUTO 0.02 K/uL (0.00-0.20); BASOPHILS PERCENT AUTO 0.3 % (0.0-1.0); EOSINOPHILS ABSOLUTE AUTO 0.07 K/uL (0.00-0.45); EOSINOPHILS PERCENT AUTO 1.2 % (0.0-6.0); HEMATOCRIT 38.6 % (37.0-47.0); HEMOGLOBIN 13.1 g/dL (12.0-16.0); IMMATURE GRAN ABSOLUTE AUTO 0.01 K/uL (0.00-0.05); IMMATURE GRAN PERCENT AUTO 0.2 % (0.0-0.4); LYMPHOCYTES PERCENT AUTO 33.2 % (24.0-44.0); MEAN CORPUSCULAR HEMOGLOBIN 31.5 pg (28.0-32.0); MEAN CORPUSCULAR HGB CONC 33.9 g/dL (32.0-36.0); MEAN CORPUSCULAR VOLUME 92.8 fL (83.0-99.0); MEAN PLATELET VOLUME 9.8 fL (9.4-12.3); MONOCYTES PERCENT AUTO 8.3 % (0.0-8.0); NEUTROPHILS ABSOLUTE AUTO 3.42 K/uL (1.80-7.70); NEUTROPHILS PERCENT AUTO 56.8 % (41.0-71.0); PLATELET COUNT,PLT 222 K/uL (150-400); RED BLOOD CELL COUNT 4.16 M/uL (4.10-5.30); WHITE BLOOD CELL COUNT,WBC 6.02 K/uL (3.9-11.3)
[2024-12-02] MEDS: Iopamidol 755 MG/ML 500 ML Multipack Bottle IVPUSH ONE (23:06)
[2024-12-03 01:16] LABS: CARBON DIOXIDE,CO2 23.4 mmol/L (21.0-32.0); CREATININE 1.4 mg/dL (0.6-1.0); EST CRCL DRUG DOSING (CG) 50.65 mL/min; POTASSIUM,K 3.9 mmol/L (3.5-5.1)
== END 2024-12-03 01:45 | disposition left against medical advice (07) ==
LOC: MW.ED 20:46
DX: H57.9 Unspecified disorder of eye and adnexa (principal); Z90.49 Acquired absence of other specified parts of digestive tract; Z90.710 Acquired absence of both cervix and uterus; Z79.899 Other long term (current) drug therapy
CPT/HCPCS: 36415; 70450; 70496; 70498; 80048; 83735; 85025; 93005; 99284; Q9967; 99283